=== PATIENT | female | born 1980 | race Hispanic/Latino ===

== ENCOUNTER 2020-08-20 09:57 | Emergency (ER) | payer OTHER, SELFPAY ==
[2020-08-20 11:23] LABS: Urine Blood Negative (Negative); Urine Glucose Negative (Negative); Urine Protein Negative (Negative); Urine Specific Gravity 1.025 (1.005-1.030)
[2020-08-20 11:46] LABS: Absolute Lymphocytes (CBC) 2.6 K/uL (0.7-4.9); Basophils % 0.5 % (0-1.3); Hematocrit 41.3 % (36.0-45.0); Lymphocytes % 31.5 % (15.3-44.8); MPV 8.6 fL (7.6-11.3); RBC Red Blood Cell Count 4.56 M/uL (3.86-4.86)
[2020-08-20 12:03] LABS: BUN Blood Urea Nitrogen 13 mg/dL (7-18); Bicarbonate 24 mmol/L (21-32); Creatine Phosphokinase 54 U/L (26-192); Glucose Level 89 mg/dL (74-106); NT PRO-BNP 69 pg/mL (<125); Potassium 3.9 mmol/L (3.5-5.1); Sodium Level 139 mmol/L (136-145)
[2020-08-20 12:05] LABS: Urine RBC NONE SEEN /HPF (NONE SEEN)
[2020-08-20 12:05] LABS: Urine Specific Gravity/Preg 1.025 (1.005-1.030)
[2020-08-20 12:06] LABS: Urine Bacteria NONE SEEN /HPF (<20)
--- NOTE | 2020-08-20 12:54 | RAD REPORT ---
EXAM DESCRIPTION: CT - Abdomen Pelvis W Contrast - 08/20/2020 11:38 am CLINICAL HISTORY: nausea/vomiting/low back pain COMPARISON: CT ABD PELVIS W CONTRAST dated 10/24/2014 TECHNIQUE: Biphasic, helical CT imaging of the abdomen and pelvis was performed following 100 ml non -ionic IV contrast. No oral contrast administered. All CT scans are performed using dose optimization technique as appropriate and may include automated exposure control or mA/KV adjustment according to patient size. FINDINGS: No suspicious findings in the lung bases. The liver, spleen, and pancreas show no suspicious findings. Cholecystectomy clips are present. No bi liary tree dilatation. Symmetric renal function is seen with no hydronephrosis or suspicious renal mass. No pyelonephritis o r acute parenchymal process. No bladder abnormalities. No adrenal abnormalities. Uterus and ovaries s how no suspicious findings. Tubal occlusive device is in place. No dilated bowel loops or bowel wall thickening. Appendix is normal. No free air, free fluid or infla mmatory stranding. No mass or bulky lymphadenopathy. Abdominal plasty surgical changes are present. No hematoma, mass or suspicious abdominal wall finding. No suspicious bony findings. IMPRESSION: Contrast enhanced CT abdomen and pelvis showing no acute or emergent finding. Nonacute findings detailed in the body of the report.
--- NOTE | 2020-08-20 14:42 | EDPHYS ---
Physician Documentation [facility] Name: Deirdre Salazar Age: 40 yrs Sex: Female : 1980 Arrival Date: 08/20/2020 Time: 09:59 Bed 13 Private MD: ED Physician Hernan Zuniga HPI: 08/20 12:15 This 40 yrs old Female presents to ER via Ambulatory with complaints of Chest rn Pain, Facial Swelling, Leg Swelling, Nausea. 12:17 Reports noticed generalized swelling since yesterday, vomiting, generalized weakness, rn and then chest pain after vomiting. Has never happened before. No fever. No sob. No trauma. No known kidney or heart problems. . Onset: The symptoms/episode began/occurred yesterday. Severity of symptoms: At their worst the symptoms were mild in the emergency department the symptoms are unchanged. The patient has not experienced similar symptoms in the past. The patient has not recently seen a physician. 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 - Social history:: Smoking status: Patient denies any tobacco usage or history of. - Family history:: not pertinent. - Hospitalizations: : No recent hospitalization is reported. ROS: 12:17 Constitutional: Negative for fever, chills, and weight loss, Eyes: Negative for injury, rn pain, redness, and discharge, Neck: Negative for injury, pain, and swelling, Cardiovascular: Negative for palpitations, and edema, Respiratory: Negative for shortness of breath, cough, wheezing, and pleuritic chest pain, Abdomen/GI: Negative for abdominal pain, diarrhea, and constipation, Back: Negative for injury and pain, : Negative for injury, bleeding, discharge, and swelling, MS/Extremity: Negative for injury and deformity, Skin: Negative for injury, rash, and discoloration, Neuro: Negative for headache, numbness, tingling, and seizure. Exam: 12:17 Constitutional: This is a well developed, well nourished patient who is awake, alert, rn and in no acute distress. Head/Face: Normocephalic, atraumatic. Eyes: Pupils equal round and reactive to light, extra-ocular motions intact. ENT: No stridor, MMM Cardiovascular: Regular rate and rhythm. No pulse deficits. Respiratory: No increased work of breathing, no retractions or nasal flaring. Abdomen/GI: soft, non-tender Skin: Warm, dry, no cyanosis, no rash MS/ Extremity: Pulses equal, no cyanosis. Neurovascular intact. Full, normal range of motion. Equal circumference. 1+ pitting edema bilateral lower ext Neuro: Awake and alert, GCS 15, oriented to person, place, time, and situation. Cranial nerves II-XII grossly intact. Motor strength 5/5 in all extremities. Sensory grossly intact. Cerebellar exam normal. Normal gait. Vital Signs: 10:12 BP 124 / 71; Pulse 80; Resp 18 S; Temp 97.8(TE); Pulse Ox 99% on R/A; Weight 86.18 kg aa5 (R); Height 5 ft. 0 in. (152.40 cm) (R); 12:00 BP 153 / 74; Pulse 80; Resp 20; Pulse Ox 99% on R/A; kg 13:00 BP 149 / 78; Pulse 80; Resp 20; Pulse Ox 100% on R/A; kg 14:02 BP 115 / 62; Pulse 70; Resp 20; Pulse Ox 98% on R/A; kg 15:00 BP 120 / 72; Pulse 74; Resp 20; Pulse Ox 100% on R/A; kg 10:12 Body Mass Index 37.11 (86.18 kg, 152.40 cm) aa5 MDM: 10:16 Patient medically screened. rn 14:40 Differential Diagnosis kidney failure, CHF, viral syndrome, thyroid problem. Data rn reviewed: vital signs, nurses notes, lab test result(s), radiologic studies, CT scan, and as a result, I will discharge patient. Counseling: I had a detailed discussion with the patient and/or guardian regarding: the historical points, exam findings, and any diagnostic results supporting the discharge/admit diagnosis, lab results, radiology results, the need for outpatient follow up, to return to the emergency department if symptoms worsen or persist or if there are any questions or concerns that arise at home. Response to treatment: the patient's symptoms have mildly improved after treatment, and as a result, I will discharge patient. Special discussion: I discussed with the patient/guardian in detail that at this point there is no indication for admission to the hospital. It is understood, however, that if the symptoms persist or worsen the patient needs to return immediately for re-evaluation. ED course: NO acute findings in labs or imaging, stable vitals, recommend f/u with pcp for further eval. . 08/20 10:23 Order name: CBC with Diff rn 08/20 10:24 Order name: Basic Metabolic Panel rn 08/20 10:24 Order name: Urine Microscopic Only rn 08/20 10:24 Order name: CK; Complete Time: 12:07 rn 08/20 10:24 Order name: TSH; Complete Time: 12:07 rn 08/20 10:24 Order name: T4 Free; Complete Time: 12:07 rn 08/20 10:24 Order name: BNP; Complete Time: 12:07 rn 08/20 10:24 Order name: CBC with Automated Diff; Complete Time: 12:07 EDFL 08/20 10:24 Order name: Basic Metabolic Panel; Complete Time: 12:07 EDMS 08/20 10:24 Order name: Urine Microscopic Only; Complete Time: 12:07 EDMS 08/20 11:23 Order name: Urine Dipstick-Ancillary; Complete Time: 12:07 EDMS 08/20 11:27 Order name: Urine --Ancillary (enter results); Complete Time: 12:07 08/20 14:07 Order name: SARS-COV-2 RT PCR; Complete Time: 14:34 EDMS 08/20 10:23 Order name: IV Start; Complete Time: 11:23 rn 08/20 10:24 Order name: Urine Test (obtain specimen); Complete Time: 11:23 rn 08/20 10:24 Order name: Urine Dipstick-Ancillary (obtain specimen); Complete Time: 11:23 rn 08/20 10:24 Order name: CT Abd/Pelvis - IV Contrast Only; Complete Time: 12:56 rn 08/20 14:10 Order name: CREATININE WHOLE BLOOD; Complete Time: 14:34 EDMS Administered Medications: No medications were administered Disposition: 08/20/20 14:42 Discharged to Home. Impression: Edema, unspecified. - Condition is Stable. - Discharge Instructions: Edema. - Medication Reconciliation Form, Thank You Letter, Antibiotic Education, Prescription Opioid Use form. - Follow up: Private Physician; When: As needed; Reason: Recheck today's complaints, Re-evaluation by your physician. - Problem is new. - Symptoms have improved. Signatures: Dispatcher [employer] [facility] Hernan Zuniga MD MD rn Calderon, Audri, RN RN aa5 Reema Bryant kg Corrections: (The following items were deleted from the chart) 13:18 10:24 CORONAVIRUS+MR.LAB.BRZ ordered. [facility] 15:31 14:42 08/20/2020 14:42 Discharged to Home. Impression: Edema, unspecified. Condition is kg Stable. Forms are Medication Reconciliation Form, Thank You Letter, Antibiotic Education, Prescription Opioid Use. Follow up: Private Physician; When: As needed; Reason: Recheck today's complaints, Re-evaluation by your physician. Problem is new. Symptoms have improved. rn
--- NOTE | 2020-08-20 14:42 | ER ---
Nurse's Notes [facility] Name: Deirdre Salazar Age: 40 yrs Sex: Female : 1980 Arrival Date: 08/20/2020 Time: 09:59 Bed 13 Private MD: Diagnosis: Edema, unspecified Presentation: 08/20 10:12 Chief complaint: Patient states: "I am swollen all over since yesterday and I threw up aa5 about 3 times today and probably got chest pain from me throwing up". Coronavirus screen: vomiting. Ebola Screen: Patient negative for fever greater than or equal to 101.5 degrees Fahrenheit, and additional compatible Ebola Virus Disease symptoms. Initial Sepsis Screen: Does the patient meet any 2 criteria? No. Patient's initial sepsis screen is negative. Does the patient have a suspected source of infection? No. Patient's initial sepsis screen is negative. Risk Assessment: Do you want to hurt yourself or someone else? Patient reports no desire to harm self or others. Onset of symptoms was August 2020. 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 - Social history:: Smoking status: Patient denies any tobacco usage or history of. - Family history:: not pertinent. - Hospitalizations: : No recent hospitalization is reported. Screenin:08 Abuse screen: Denies threats or abuse. Nutritional screening: No deficits noted. kg Tuberculosis screening: No symptoms or risk factors identified. Fall Risk None identified. No fall in past 12 months (0 pts). No secondary diagnosis (0 pts). IV access (20 points). Ambulatory Aid- None/Bed Rest/Nurse Assist (0 pts). Gait- Normal/Bed Rest/Wheelchair (0 pts) Mental Status- Oriented to own ability (0 pts). Total Mayes Fall Scale indicates No Risk (0-24 pts). Assessment: 11:03 General: Appears in no apparent distress. Behavior is calm, cooperative, appropriate kg for age, quiet. Pain: Complains of pain in chest Pain does not radiate. Pain currently is 5 out of 10 on a pain scale. at worst was 8 out of 10 on a pain scale. level that patient reports is acceptable is 5 out of 10 on a pain scale. Quality of pain is described as aching, Pain began gradually, 4 hours ago. Neuro: No deficits noted. Level of Consciousness is awake, alert, obeys commands, Oriented to person, place, time, situation, Appropriate for age. Cardiovascular: Reports chest pain, Heart tones S1 S2 Capillary refill < 3 seconds. Respiratory: No deficits noted. Airway is patent Breath sounds are clear bilaterally. GI: No deficits noted. : No deficits noted. EENT: No deficits noted. Derm: No deficits noted. Vital Signs: 10:12 BP 124 / 71; Pulse 80; Resp 18 S; Temp 97.8(TE); Pulse Ox 99% on R/A; Weight 86.18 kg aa5 (R); Height 5 ft. 0 in. (152.40 cm) (R); 12:00 BP 153 / 74; Pulse 80; Resp 20; Pulse Ox 99% on R/A; kg 13:00 BP 149 / 78; Pulse 80; Resp 20; Pulse Ox 100% on R/A; kg 14:02 BP 115 / 62; Pulse 70; Resp 20; Pulse Ox 98% on R/A; kg 15:00 BP 120 / 72; Pulse 74; Resp 20; Pulse Ox 100% on R/A; kg 10:12 Body Mass Index 37.11 (86.18 kg, 152.40 cm) aa5 ED Course: 09:59 Patient arrived in ED. am2 10:11 Arm band placed on. aa5 10:13 Triage completed. aa5 10:14 Reema Bryant is Primary Nurse. kg 10:16 Hernan Zuniga MD is Attending Physician. rn 11:08 Inserted saline lock: 20 gauge in left antecubital area, using aseptic technique. kg Patient maintains SpO2 saturation greater than 95% on room air. 11:09 Patient has correct armband on for positive identification. Placed in gown. Bed in low kg position. Call light in reach. Side rails up X 1. secured entrance monitor on. Pulse ox on. NIBP on. 11:23 Urine Microscopic Only Sent. kg 11:23 Basic Metabolic Panel Sent. kg 11:23 CBC with Diff Sent. kg 11:38 CT Abd/Pelvis - IV Contrast Only In Process Unspecified. EDMS 15:30 No provider procedures requiring assistance completed. IV discontinued, intact, kg bleeding controlled, No redness/swelling at site. Pressure dressing applied. Administered Medications: No medications were administered Outcome: 14:42 Discharge ordered by . rn 15:30 Discharged to home ambulatory. kg 15:30 Condition: good 15:30 Discharge instructions given to patient, Instructed on discharge instructions, follow up and referral plans. Demonstrated understanding of instructions, follow-up care. 15:31 Patient left the ED. kg Signatures: Dispatcher [employer] EDMS Hernan Zuniga MD MD rn Calderon, Audri RN RN Urvashi Alexandra Kristen kg
[2020-08-20 15:50] VITALS: TEMP 97.8
[2020-08-20 16:19] VITALS: BP 120/72; O2SAT 100
== END 2020-08-20 15:31 | disposition home or self-care (01) ==
LOC: ER 09:57
DX: R60.9 Edema, unspecified (principal); R11.2 Nausea with vomiting, unspecified; Z20.822 Contact with and (suspected) exposure to COVID-19
CPT/HCPCS: 36415; 74177; 80048; 81003; 81015; 81025; 82550; 82565; 83880; 84439; 84443; 85025; 99285; Q9967; U0003

== ENCOUNTER 2020-12-05 19:23 | Emergency (ER) | payer OTHER, SELFPAY ==
[2020-12-05] MEDS ORDERED: ONDANSETRON 4 MG (ODT) TAB ONE (20:46)
[2020-12-05 23:03] LABS: Absolute Lymphocytes (CBC) 1.7 K/uL (0.7-4.9); Basophils % 0.3 % (0-1.3); Hematocrit 41.1 % (36.0-45.0); Lymphocytes % 11.8 % (15.3-44.8); MPV 8.1 fL (7.6-11.3); RBC Red Blood Cell Count 4.68 M/uL (3.86-4.86)
[2020-12-05] MEDS ORDERED: MECLIZINE HCL 12.5 MG TAB ONE (23:03)
[2020-12-05] MEDS ORDERED: ACETAMINOPHEN 500 MG TAB ONE (23:03)
[2020-12-05] MEDS ORDERED: ONDANSETRON 4 MG/2 ML VIAL ONE (23:03)
[2020-12-05] MEDS ORDERED: METOCLOPRAMIDE 10 MG/2mL INJ ONE (23:03)
[2020-12-05] MEDS ORDERED: FAMOTIDINE 20 MG/2 ML VIAL IV ONE (23:04)
[2020-12-05] MEDS ORDERED: NA CHLORIDE 0.9% 1,000 ML ONE (23:04)
[2020-12-05 23:29] LABS: ALT/SGPT 37 U/L (12-78); AST/SGOT 15 U/L (15-37); Albumin 3.8 g/dL (3.4-5.0); Alkaline Phosphatase 67 U/L (45-117); BUN Blood Urea Nitrogen 15 mg/dL (7-18); Bicarbonate 25 mmol/L (21-32); Bilirubin Direct 0.1 mg/dL (0-0.2); Bilirubin Total 0.5 mg/dL (0.2-1.0); Glucose Level 99 mg/dL (74-106); Lipase 49 U/L (73-393); Magnesium 1.7 mg/dL (1.8-2.4); Potassium 4.4 mmol/L (3.5-5.1); Protein, Total 8.2 g/dL (6.4-8.2); Sodium Level 135 mmol/L (136-145); Troponin (Emerg Dept Use Only) < 0.02 ng/mL (0.0-0.045)
[2020-12-06 00:20] LABS: Blood Morphology Comment NOT SEEN (NOT SEEN); Platelet Estimate ADEQ; White Blood Cell Scan OK (OK)
[2020-12-06] MEDS ORDERED: NA CHLORIDE 0.9% 1,000 ML ONE (00:27)
--- NOTE | 2020-12-06 03:08 | ER ---
Nurse's Notes [facility] Name: Deirdre Salazar Age: 40 yrs Sex: Female : 1980 Arrival Date: 12/05/2020 Time: 19:27 Bed 10 Private MD: Diagnosis: Dizziness and giddiness;Infectious gastroenteritis and colitis, unspecified;Nausea with vomiting, unspecified;Diarrhea, unspecified Presentation: 12/05 20:14 Chief complaint: Patient states: around lunch time she started feeling dizzy bb "everything just spins" yesterday she started having diarrhea then today she has been vomiting at least 8 times. Coronavirus screen: diarrhea, vomiting. Client presents with at least one sign or symptom that may indicate coronavirus-19. Standard/surgical mask placed on the client. Ebola Screen: No symptoms or risks identified at this time. Initial Sepsis Screen: Does the patient meet any 2 criteria? No. Patient's initial sepsis screen is negative. Does the patient have a suspected source of infection? No. Patient's initial sepsis screen is negative. Risk Assessment: Do you want to hurt yourself or someone else? Patient reports no desire to harm self or others. Onset of symptoms was December 04, 2020. 20:14 Method Of Arrival: Ambulatory bb 20:14 Acuity: EMILY 3 bb Triage Assessment: 20:16 General: Appears in no apparent distress. uncomfortable, Behavior is calm, cooperative. bb Pain: Complains of pain in headache. Neuro: Level of Consciousness is awake, alert, obeys commands, Oriented to person, place, time, situation. Cardiovascular: Capillary refill < 3 seconds Patient's skin is warm and dry. Respiratory: Respiratory effort is even, unlabored, Respiratory pattern is regular. GI: Reports diarrhea, vomiting. Derm: Skin is pink, warm \\T\\ dry. Musculoskeletal: Circulation, motion, and sensation intact. 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 - Social history:: Smoking status: Patient denies any tobacco usage or history of. Screenin:00 Fall Risk IV access (20 points). wg 22:58 Abuse screen: Denies threats or abuse. Nutritional screening: No deficits noted. wg Tuberculosis screening: No symptoms or risk factors identified. Assessment: 22:00 GI: Reports diarrhea. Vital Signs: 20:14 BP 123 / 66; Pulse 80; Resp 16 S; Temp 98(O); Pulse Ox 97% on R/A; Weight 92.99 kg (R); bb Height 5 ft. 0 in. (152.40 cm) (R); Pain 8/10; 22:00 BP 134 / 72; Pulse 88; Resp 20; Temp 97.5; Pulse Ox 98% ; Pain 4/10; wg 23:43 BP 92 / 48; Pulse 74; Resp 18; Pulse Ox 95% on R/A; dh4 12/06 03:32 BP 128 / 74; Pulse 78; Resp 18; Temp 98.1; Pulse Ox 100% on R/A; Pain 0/10; wg 12/05 20:14 Body Mass Index 40.04 (92.99 kg, 152.40 cm) ED Course: 12/05 19:27 Patient arrived in ED. bp1 20:16 Triage completed. bb 20:16 Arm band placed on Patient placed in waiting room, Patient notified of wait time. Labs bb ordered per protocol. 21:48 Trae Bentley PA is PHCP. cp 21:48 Elvis Palacios MD is Attending Physician. cp 22:00 Patient has correct armband on for positive identification. 22:00 Inserted saline lock: 20 gauge in left forearm, using aseptic technique. 22:00 Inserted saline lock:. wg 22:19 CT Head Brain wo Cont In Process Unspecified. EDMS 22:57 No provider procedures requiring assistance completed. 12/06 01:09 Tricia Ramos, RN is Primary Nurse. 9 02:13 CT Abd/Pelvis - IV Contrast Only In Process Unspecified. EDMS 03:31 IV discontinued, intact, bleeding controlled, No redness/swelling at site. Pressure wg dressing applied. Administered Medications: 12/05 20:24 Drug: Ondansetron 4 mg Route: PO; 12/06 03:34 Follow up: Response: No adverse reaction 12/05 22:45 Drug: Meclizine 25 mg Route: PO; 12/06 00:01 Follow up: Response: No adverse reaction 03:34 Follow up: Response: No adverse reaction 12/05 22:45 Drug: NS 0.9% 1000 ml Route: IV; Rate: 1 bolus; Site: left forearm; bb 12/06 00:00 Follow up: IV Status: Completed infusion; IV Intake: 1000ml 12/05 22:45 Drug: Tylenol 1000 mg Route: PO; 12/06 00:01 Follow up: Response: No adverse reaction bb 03:34 Follow up: Response: No adverse reaction 12/05 22:45 Drug: Reglan (metoCLOPramide) 10 mg Route: IVP; Site: left forearm; 12/06 00:01 Follow up: Response: No adverse reaction 03:33 Follow up: Response: No adverse reaction 12/05 22:47 Drug: Pepcid (famotidine) 20 mg Route: IVP; Site: left forearm; 12/06 00:00 Follow up: Response: No adverse reaction 12/05 22:50 Drug: Zofran (Ondansetron) 4 mg Route: IVP; Site: left forearm; 12/06 00:00 Follow up: Response: No adverse reaction bb 03:34 Follow up: Response: No adverse reaction 00:09 Drug: NS 0.9% 1000 ml Route: IV; Rate: 1 bolus; Site: left forearm; bb 03:30 Follow up: IV Status: Completed infusion wg 03:09 Drug: Cipro (ciprofloxacin) 500 mg Route: PO; wg 03:33 Follow up: Response: No adverse reaction wg 03:09 Drug: metroNIDAZOLE 500 mg Route: PO; wg 03:33 Follow up: Response: No adverse reaction 03:10 Drug: Magnesium 800 mg Route: PO; wg 03:33 Follow up: Response: No adverse reaction Intake: 00:00 IV: 1000ml; Total: 1000ml. bb Outcome: 03:07 Discharge ordered by . ema 03:35 Patient left the ED. wg Signatures: Dispatcher [employer] EDJessica Chao RN RN Trae Boyd PA PA cp Huhn, Donald 4 Gloria Marques Skylar, RN RN sh9 Dhaval Figueroa wg
--- NOTE | 2020-12-06 03:08 | EDPHYS ---
Physician Documentation [facility] Name: Deirdre Salazar Age: 40 yrs Sex: Female : 1980 Arrival Date: 12/05/2020 Time: 19:27 Bed 10 Private MD: ED Physician Elvis Palacios HPI: 12/05 22:05 This 40 yrs old Female presents to ER via Ambulatory with complaints of cp Dizziness, Vomiting. 22:05 The patient presents with dizziness, lightheadedness, feeling off balance. Onset: The cp symptoms/episode began/occurred this morning. 22:05 Context: occurred while the patient was standing. Associated signs and symptoms: cp Pertinent positives: N/V/D that started last night. Patient's baseline: Neuro: alert and fully oriented, Motor: no deficits, Ambulation: walks without assistance, Speech: normal. Patient denies fever. c/o headache. Reports dizziness while driving to ED this evening. 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 - Social history:: Smoking status: Patient denies any tobacco usage or history of. ROS: 22:10 Constitutional: Positive for poor PO intake, Negative for chills, fever. cp 22:10 Eyes: Negative for injury, pain, redness, and discharge. cp 22:10 ENT: Negative for ear pain, sore throat, difficulty swallowing, difficulty handling secretions. 22:10 Cardiovascular: Negative for chest pain, edema, palpitations. 22:10 Respiratory: Negative for cough, shortness of breath, wheezing. 22:10 Abdomen/GI: Positive for nausea, vomiting, and diarrhea, anorexia, Negative for constipation, hematemesis, black/tarry stool, rectal bleeding. 22:10 Neuro: Positive for headache, Negative for altered mental status, weakness. Exam: 22:15 Constitutional: The patient appears in no acute distress, alert, awake, cp non-diaphoretic, non-toxic, well developed, well nourished, obese. 22:15 Head/Face: Normocephalic, atraumatic. cp 22:15 Eyes: Periorbital structures: appear normal, Pupils: equal, round, and reactive to light and accomodation, Extraocular movements: intact throughout, Conjunctiva: normal, no exudate, no injection, Sclera: no appreciated abnormality, Lids and lashes: appear normal, bilaterally. 22:15 ENT: External ear(s): are unremarkable, Ear canal(s): are normal, clear, TM's: dullness, bilaterally, Nose: is normal, Mouth: Lips: moist, Oral mucosa: moist, Posterior pharynx: Airway: no evidence of obstruction, patent. 22:15 Neck: ROM/movement: is normal, is supple, without pain, no range of motions limitations, no meningismus. 22:15 Chest/axilla: Inspection: normal, Palpation: is normal, no crepitus, no tenderness. 22:15 Cardiovascular: Rate: normal, Rhythm: regular. 22:15 Respiratory: the patient does not display signs of respiratory distress, Respirations: normal, no use of accessory muscles, no retractions, labored breathing, is not present, Breath sounds: are clear throughout, no decreased breath sounds, no stridor, no wheezing. 22:15 Abdomen/GI: Inspection: abdomen appears normal, Palpation: soft, in all quadrants, mild abdominal tenderness, in the left upper quadrant and left lower quadrant, rebound tenderness, is not appreciated, voluntary guarding, is not appreciated, involuntary guarding, is not appreciated. 22:15 Back: pain, that is mild, of the left low back, ROM is normal, CVA tenderness, is absent. 22:15 Neuro: Orientation: to person, place \T\ time. Mentation: is normal, Cerebellar function: is grossly normal, Motor: moves all fours, strength is normal, Sensation: is normal. 22:18 ECG was reviewed by the Attending Physician. cp Vital Signs: 20:14 BP 123 / 66; Pulse 80; Resp 16 S; Temp 98(O); Pulse Ox 97% on R/A; Weight 92.99 kg (R); bb Height 5 ft. 0 in. (152.40 cm) (R); Pain 8/10; 22:00 BP 134 / 72; Pulse 88; Resp 20; Temp 97.5; Pulse Ox 98% ; Pain 4/10; wg 23:43 BP 92 / 48; Pulse 74; Resp 18; Pulse Ox 95% on R/A; dh4 12/06 03:32 BP 128 / 74; Pulse 78; Resp 18; Temp 98.1; Pulse Ox 100% on R/A; Pain 0/10; wg 12/05 20:14 Body Mass Index 40.04 (92.99 kg, 152.40 cm) bb MDM: 12/05 21:49 Patient medically screened. cp 22:30 Differential diagnosis: cardiac arrhythmia, CVA, GI bleed, hypovolemia, idiopathic cp dizziness, TIA, vertigo, dehydration. 12/06 03:05 Data reviewed: vital signs, nurses notes, lab test result(s), EKG, radiologic studies, cp CT scan. 03:05 Test interpretation: by ED physician or midlevel provider: ECG. Counseling: I had a cp detailed discussion with the patient and/or guardian regarding: the historical points, exam findings, and any diagnostic results supporting the discharge/admit diagnosis, lab results, radiology results, to return to the emergency department if symptoms worsen or persist or if there are any questions or concerns that arise at home. Response to treatment: the patient's symptoms have markedly improved after treatment. 12/05 21:34 Order name: SARS-COV-2 RT PCR; Complete Time: 23:47 EDMS 12/05 22:00 Order name: Basic Metabolic Panel; Complete Time: 23:47 12/05 23:48 Interpretation: Normal except: NA 135; GFR 85. 12/05 22:00 Order name: CBC with Diff; Complete Time: 00:34 12/05 23:48 Interpretation: Normal except: WBC 14.00; DANIKA% 83.5; LYM% 11.8; NEUT A 11.7. 12/05 22:00 Order name: LFT's; Complete Time: 23:47 12/06 00:34 Interpretation: Normal except: GLOB 4.4; A/G 0.9. 12/05 22:00 Order name: Magnesium; Complete Time: 23:47 12/06 00:34 Interpretation: Abnormal: MG 1.7. 12/05 22:00 Order name: Troponin (emerg Dept Use Only); Complete Time: 23:47 12/05 22:00 Order name: Lipase; Complete Time: 23:47 12/06 00:35 Interpretation: Abnormal: LIP 49. 12/05 22:05 Order name: CT Head Brain wo Cont 12/05 23:10 Order name: CBC Smear Scan; Complete Time: 00:34 EDMS 12/06 00:34 Interpretation: Reviewed. 12/05 23:49 Order name: CT Abd/Pelvis - IV Contrast Only 12/05 22:00 Order name: EKG; Complete Time: 22:02 12/05 22:00 Order name: EKG - Nurse/Tech; Complete Time: 22:57 12/05 22:00 Order name: IV Saline Lock; Complete Time: 22:57 12/05 22:00 Order name: Labs collected and sent; Complete Time: 22:57 12/05 22:00 Order name: O2 Per Protocol; Complete Time: :57 12/05 22:00 Order name: O2 Sat Monitoring; Complete Time: :57 12/06 02:52 Order name: PO challenge; Complete Time: 03:09 cp EC/25 22:18 Rate is 70 beats/min. Rhythm is regular. RI interval is normal. QRS interval is normal. cp QT interval is normal. T waves are Inverted in lead aVR. Interpreted by me. Reviewed by me. Administered Medications: 20:24 Drug: Ondansetron 4 mg Route: PO; 12/06 03:34 Follow up: Response: No adverse reaction 12/05 22:45 Drug: Meclizine 25 mg Route: PO; 12/06 00:01 Follow up: Response: No adverse reaction 03:34 Follow up: Response: No adverse reaction 12/05 22:45 Drug: NS 0.9% 1000 ml Route: IV; Rate: 1 bolus; Site: left forearm; 12/06 00:00 Follow up: IV Status: Completed infusion; IV Intake: 1000ml 12/05 22:45 Drug: Tylenol 1000 mg Route: PO; 12/06 00:01 Follow up: Response: No adverse reaction 03:34 Follow up: Response: No adverse reaction 12/05 22:45 Drug: Reglan (metoCLOPramide) 10 mg Route: IVP; Site: left forearm; 12/06 00:01 Follow up: Response: No adverse reaction 03:33 Follow up: Response: No adverse reaction 12/05 22:47 Drug: Pepcid (famotidine) 20 mg Route: IVP; Site: left forearm; bb 12/06 00:00 Follow up: Response: No adverse reaction bb 12/05 22:50 Drug: Zofran (Ondansetron) 4 mg Route: IVP; Site: left forearm; bb 12/06 00:00 Follow up: Response: No adverse reaction bb 03:34 Follow up: Response: No adverse reaction 00:09 Drug: NS 0.9% 1000 ml Route: IV; Rate: 1 bolus; Site: left forearm; bb 03:30 Follow up: IV Status: Completed infusion wg 03:09 Drug: Cipro (ciprofloxacin) 500 mg Route: PO; wg 03:33 Follow up: Response: No adverse reaction wg 03:09 Drug: metroNIDAZOLE 500 mg Route: PO; wg 03:33 Follow up: Response: No adverse reaction wg 03:10 Drug: Magnesium 800 mg Route: PO; wg 03:33 Follow up: Response: No adverse reaction wg Disposition: 03:48 Co-signature as Attending Physician, Elvis Palacios MD. izabella Disposition Summary: 12/06/20 03:07 Discharge Ordered Location: Home cp Problem: new cp Symptoms: have improved cp Condition: Stable cp Diagnosis - Dizziness and giddiness cp - Infectious gastroenteritis and colitis, unspecified cp - Nausea with vomiting, unspecified cp - Diarrhea, unspecified cp Followup: cp - With: Private Physician - When: 2 - 3 days - Reason: Worsening of condition Discharge Instructions: - Discharge Summary Sheet cp - Diarrhea, Adult cp - Clear Liquid Diet, Adult cp - Dizziness cp - Nausea and Vomiting, Adult cp Forms: - Medication Reconciliation Form cp - Thank You Letter cp - Antibiotic Education cp - Prescription Opioid Use cp Prescriptions: - Meclizine 25 mg Oral Tablet - take 1 tablet by ORAL route every 8 hours As needed; 30 tablet; Refills: 0, cp Product Selection Permitted - Zofran 4 mg Oral Tablet - take 1 tablet by ORAL route every 12 hours As needed; 20 tablet; Refills: 0, cp Product Selection Permitted - Cipro 500 mg Oral Tablet - take 1 tablet by ORAL route every 12 hours for 10 days; 20 tablet; Refills: 0, cp Product Selection Permitted - Metronidazole 500 mg Oral Tablet - take 1 tablet by ORAL route every 8 hours; 30 tablet; Refills: 0, Product cp Selection Permitted Signatures: Dispatcher [employer] Elvis Cantrell MD MD pkl Ballard Jessica, RN RN bb Trae Bentley PA PA cp Gamba, Williams wg Corrections: (The following items were deleted from the chart) 12/05 20:31 20:19 CORONAVIRUS+ ordered. EDMS EDMS
[2020-12-06] MEDS ORDERED: metroNIDAZOLE 500 MG TABLET ONE (03:29)
[2020-12-06] MEDS ORDERED: CIPROFLOXACIN HCL 500 MG TAB ONE (03:29)
[2020-12-06] MEDS ORDERED: MAGNESIUM OXIDE 400 MG TAB ONE (03:35)
[2020-12-06 04:05] VITALS: BP 128/74; TEMP 98.1; O2SAT 100
--- NOTE | 2020-12-06 11:41 | RAD REPORT ---
EXAM DESCRIPTION: CT Abdomen and Pelvis With Intravenous Contrast CLINICAL HISTORY: The patient is 40 years old and is Female; diarrhea;Nausea / vomiting TECHNIQUE: Axial computed tomography images of the abdomen and pelvis with intravenous contrast. S agittal and coronal reformatted images were created and reviewed. This CT exam was performed using one or more of the following dose reduction techniques: automated exposure control, adjustment of t he mA and/or kV according to patient size, and/or use of iterative reconstruction technique. COMPARISON: CT abdomen and pelvis August 20, 2020. FINDINGS: Lung bases: Unremarkable. No mass. No consolidation. ABDOMEN: Liver: Unremarkable. No mass. Gallbladder and bile ducts: Gallbladder is surgically absent. No ductal dilation. Pancreas: Unremarkable. No mass. No ductal dilation. Spleen: Unremarkable. No splenomegaly. Adrenals: Unremarkable. No mass. Kidneys and ureters: Unremarkable. No solid mass. No hydronephrosis. Stomach and bowel: Suggestion of bowel wall thickening involving some segments of small bowel in the left upper quadrant. Scattered colonic diverticula. No obstruction. PELVIS: Appendix: The appendix is normal. Bladder: Unremarkable. No mass. Reproductive: Tubal occlusive devices are in place. ABDOMEN and PELVIS: Intraperitoneal space: Unremarkable. No free air. No significant fluid collection. Bones/joints: No acute fracture. No dislocation. Soft tissues: Bilateral breast implants. Vasculature: Unremarkable. No abdominal aortic aneurysm. Lymph nodes: Unremarkable. No enlarged lymph nodes. IMPRESSION: 1. Suggestion of bowel wall thickening involving some segments of small bowel in the l eft upper quadrant. Findings are nonspecific but can be seen with enteritis. 2. Gallbladder is surgically absent. 3. Scattered colonic diverticula. 4. The appendix is normal. Electronically signed by: Tommy Mccrary MD 12/06/2020 2:44 AM CDT Due to temporary technical issues with the PACS/Fluency reporting system, reports are being signed by the in house radiologist without review as a courtesy to ensure prompt reporting. The interpreting r adiologist is fully responsible for the content of the report.
--- NOTE | 2020-12-06 12:14 | RAD REPORT ---
EXAM DESCRIPTION: CT HEAD WITHOUT IV CONTRAST CLINICAL HISTORY: DIZZINESS TECHNIQUE: Contiguous axial CT images obtained through the brain without IV contrast. Coronal and sa gittal reformatted images were provided. This exam was performed according to our departmental dose-optimization program, which includes autom ated exposure control, adjustment of the mA and/or kV according to patient size and/or use of iterati ve reconstruction technique. COMPARISON: None available for comparison FINDINGS: Brain: No significant white matter changes. No focal mass effect. Lobo-white matter differ entiation is within normal limits. No hemorrhage. Ventricles: No ventriculomegaly or midline shift. Extra-axial spaces: No extra-axial collection or hemorrhage. Paranasal sinuses and mastoid air cells: Well-aerated Vessels: Unremarkable Bones: Unremarkable Soft tissues: Unremarkable IMPRESSION: No acute intracranial or extra-axial abnormality. Electronically signed by: Nathalie Andrews MD 12/05/2020 10:36 PM CDT Due to temporary technical issues with the PACS/Fluency reporting system, reports are being signed by the in house radiologist without review as a courtesy to ensure prompt reporting. The interpreting r adiologist is fully responsible for the content of the report.
== END 2020-12-06 03:35 | disposition home or self-care (01) ==
LOC: ER 19:23
DX: A09 Infectious gastroenteritis and colitis, unspecified (principal); Z20.822 Contact with and (suspected) exposure to COVID-19
CPT/HCPCS: 96361; 93005; 85025; 80048; 36415; 83735; 80076; 84484; 83690; 70450; 74177; 96375; 96374; 99284; U0003; Q9967; J2765; J7030 ×2; J2405

== ENCOUNTER 2021-01-26 09:33 | Emergency (ER) | payer OTHER, SELFPAY ==
[2021-01-26] MEDS ORDERED: HYDROCODONE/APAP 10/325 TAB ONE (11:49)
[2021-01-26] MEDS ORDERED: LIDOCAINE VISCOUS 2% SOLN 15 ML UDC ONE (11:50)
--- NOTE | 2021-01-26 12:48 | EDPHYS ---
Physician Documentation [facility] Name: Deirdre Salazar Age: 41 yrs Sex: Female : 1980 Arrival Date: 01/26/2021 Time: 09:36 Bed 26 Private MD: Trae Vann HPI: 01/26 10:06 This 41 yrs old Female presents to ER via Ambulatory with complaints of jmm Vaginal Pain - swelling. 10:06 The patient presents with pelvic pain. Onset: The symptoms/episode began/occurred jmm acutely, last night. Modifying factors: The symptoms are alleviated by nothing, the symptoms are aggravated by nothing. Associated signs and symptoms: Pertinent negatives:. This is a 41-year-old female with no chronic medical conditions the presents emerged part with complaints of vaginal pain which occurred after intercourse last night. Patient states that her partner inserted his penis into her labia did not angle. Patient states pain has decreased she is able to walk now but continues to have ongoing pain and swelling to the area. Denies bleeding.. 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 - Social history:: Smoking status: Patient denies any tobacco usage or history of. ROS: 10:06 Constitutional: Negative for fever, chills, and weight loss, Cardiovascular: Negative jmm for chest pain, palpitations, and edema, Respiratory: Negative for shortness of breath, cough, wheezing, and pleuritic chest pain. 10:06 : Positive for pelvic pain. 10:06 All other systems are negative. Exam: 10:06 Constitutional: This is a well developed, well nourished patient who is awake, alert, jmm and in no acute distress. Head/Face: atraumatic. Eyes: EOMI, no conjunctival erythema appreciated ENT: Moist Mucus Membranes Neck: Trachea midline, Supple Chest/axilla: Normal chest wall appearance and motion. Cardiovascular: Regular rate and rhythm. No edema appreciated Respiratory: Normal respirations, no respiratory distress appreciated Abdomen/GI: Non distended, soft Back: Normal ROM Skin: General appearance color normal 10:06 MS/ Extremity: Moves all extremities, no obvious deformities appreciated, no edema noted to the lower extremities Neuro: Awake and alert, normal gait Psych: Behavior is normal, Mood is normal, Patient is cooperative and pleasant 10:06 : Right labial swelling appreciated with some ecchymosis, no lacerations noted, no active bleeding noted. Vital Signs: 10:00 BP 127 / 84; Pulse 75; Resp 18; Temp 97.9(O); Pulse Ox 99% on R/A; Pain 11/20; aj1 12:00 BP 118 / 72; Pulse 75; Resp 18; Pulse Ox 99% on R/A; aj1 MDM: 10:06 Patient medically screened. [facility] 12:47 Data reviewed: vital signs, nurses notes. Counseling: I had a detailed discussion with wilber the patient and/or guardian regarding: the historical points, exam findings, and any diagnostic results supporting the discharge/admit diagnosis, the need for outpatient follow up, to return to the emergency department if symptoms worsen or persist or if there are any questions or concerns that arise at home. ED course: Pain has decreased while in the ED. Patient advised follow-up with [facility] for further evaluation otherwise given strict return precautions. Patient understood agrees plan of care.. Administered Medications: 11:30 Drug: Viscous Lidocaine Liquid (4 %) 10 ml Route: Mucous Membrane; aj1 11:30 Drug: [place] (HYDROcodone-acetaminophen) 10 mg-325 mg 1 tabs Route: PO; aj1 Disposition Summary: 01/26/21 12:48 Discharge Ordered Location: Home [facility] Condition: Stable [facility] Diagnosis - Labial hematoma [facility] Followup: [facility] - With: Private Physician - When: 2 - 3 days - Reason: Recheck today's complaints, Continuance of care, Re-evaluation by your physician Discharge Instructions: - Discharge Summary Sheet [facility] - How to Take a Sitz Bath [facility] Forms: - Medication Reconciliation Form [facility] - Thank You Letter [facility] - Antibiotic Education [facility] - Prescription Opioid Use [facility] Prescriptions: - Ultracet 37.5-325 mg Oral Tablet - take 1 tablet by ORAL route every 6 hours - for up to 5 days; do not exceed 8 jmm tablets per day.; 12 tablet; Refills: 0, Product Selection Permitted Addendum: 01/27/2021 16:12 Co-signature as Attending Physician, Trae Feliciano MD I agree with the assessment and c burch plan of care. Signatures: Calista Gabriel RN RN aj1 Trae Feliciano MD MD cha Mickail, Joel, PA PA jmm
--- NOTE | 2021-01-26 12:48 | ER ---
Nurse's Notes [facility] Name: Deirdre Salazar Age: 41 yrs Sex: Female : 1980 Arrival Date: 01/26/2021 Time: 09:36 Bed 26 Private MD: Diagnosis: Labial hematoma Presentation: 01/26 10:00 Chief complaint: Patient states: She was having sexual intercourse last night when she aj1 started to feel pain in her labia. It become very painful so they stopped, she noticed after that that her labia started to be very swollen. She tried icing it last night, but it was more painful and swollen this morning. Denies drainage from the area. 10:00 Coronavirus screen: Client denies travel out of the [place] in the last 14 days. Ebola aj1 Screen: Patient denies travel to an Ebola-affected area in the 21 days before illness onset. Initial Sepsis Screen: Does the patient meet any 2 criteria? No. Patient's initial sepsis screen is negative. Does the patient have a suspected source of infection? No. Patient's initial sepsis screen is negative. Risk Assessment: Do you want to hurt yourself or someone else? Patient reports no desire to harm self or others. Onset of symptoms was January 25, 2021. 10:00 Method Of Arrival: Ambulatory aj1 10:00 Acuity: EMILY 4 aj1 Triage Assessment: 10:43 General: Appears in no apparent distress. uncomfortable, Behavior is calm, cooperative, aj1 appropriate for age. Pain: Complains of pain in pelvis Pain currently is 8 out of 10 on a pain scale. 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 - Social history:: Smoking status: Patient denies any tobacco usage or history of. Screenin:15 Abuse screen: Denies threats or abuse. Denies injuries from another. Nutritional aj1 screening: No deficits noted. Tuberculosis screening: No symptoms or risk factors identified. 13:15 Fall Risk None identified. aj1 Assessment: 10:15 General: Appears in no apparent distress. uncomfortable, Behavior is calm, cooperative, aj1 appropriate for age. 10:15 Pain: Complains of pain in right labia minora Pain does not radiate. Pain currently is aj1 10 out of 10 on a pain scale. Quality of pain is described as aching, sharp, shooting, pulsating, Pain began 1 day ago. Neuro: Level of Consciousness is awake, alert, obeys commands, Oriented to person, place, time, situation. Cardiovascular: Patient's skin is warm and dry. Respiratory: Airway is patent Respiratory effort is even, unlabored, Respiratory pattern is regular, symmetrical. GI: No signs and/or symptoms were reported involving the gastrointestinal system. : Swelling noted on labia Denies burning with urination. EENT: No signs and/or symptoms were reported regarding the EENT system. Derm: Skin is pink, warm \T\ dry. Musculoskeletal: Circulation, motion, and sensation intact. 11:15 Reassessment: Patient appears in no apparent distress at this time. No changes from aj1 previously documented assessment. Patient and/or family updated on plan of care and expected duration. Pain level reassessed. Patient is alert, oriented x 3, equal unlabored respirations, skin warm/dry/pink. 12:30 Reassessment: Patient is alert, oriented x 3, equal unlabored respirations, skin aa5 warm/dry/pink. Vital Signs: 10:00 BP 127 / 84; Pulse 75; Resp 18; Temp 97.9(O); Pulse Ox 99% on R/A; Pain 8/10; aj1 12:00 BP 118 / 72; Pulse 75; Resp 18; Pulse Ox 99% on R/A; aj1 ED Course: 09:36 Patient arrived in ED. as 09:56 Juvencio Barba PA is PHCP. [facility] 09:56 Trae Feliciano MD is Attending Physician. [facility] 10:15 Patient has correct armband on for positive identification. Bed in low position. Call aj1 light in reach. Side rails up X 1. 10:41 Calista Gabriel, RN is Primary Nurse. aj1 10:43 Triage completed. aj1 10:43 Arm band placed on Patient placed in an exam room. aj1 12:30 Assist provider with pelvic exam: Set up pelvic tray. Performed by Juvencio [email or web address] Patient tolerated well. 13:15 Patient did not have IV access during this emergency room visit. aj1 Administered Medications: 11:30 Drug: Viscous Lidocaine Liquid (4 %) 10 ml Route: Mucous Membrane; aj1 11:30 Drug: [place] (HYDROcodone-acetaminophen) 10 mg-325 mg 1 tabs Route: PO; aj1 Outcome: 12:48 Discharge ordered by MD. merino 13:15 Discharged to home ambulatory. aj1 13:15 Condition: good 13:15 Discharge instructions given to patient, Instructed on discharge instructions, follow up and referral plans. medication usage, Demonstrated understanding of instructions, follow-up care, medications, Prescriptions given X 1. 13:16 Patient left the ED. aj1 Signatures: Calista Gabriel RN RN aj1 Juvencio Barba PA PA jmm Martinez, Amelia as Calderon, Audri, RN RN aa5 Corrections: (The following items were deleted from the chart) 12:56 10:15 General: Appears in no apparent distress. uncomfortable, Behavior is calm, aj1 cooperative, appropriate for age, aj1
[2021-01-26 13:36] VITALS: TEMP 97.9; O2SAT 99
[2021-01-26 13:42] VITALS: BP 118/72
== END 2021-01-26 13:16 | disposition home or self-care (01) ==
LOC: ER 09:33
DX: S30.23XA Contusion of vagina and vulva, initial encounter (principal)
CPT/HCPCS: 99283

== ENCOUNTER 2023-03-11 09:19 | Emergency (ER) | payer SELFPAY ==
[2023-03-11 09:56] LABS: Absolute Lymphocytes (CBC) 2.8 K/uL (0.7-4.9); Hematocrit 44.2 % (36.0-45.0); MCV 90.5 fL (80-100); Platelets 326 thou/uL (152-406); RBC Red Blood Cell Count 4.88 M/uL (3.86-4.86); Specific Gravity 1.022 (1.005-1.030)
[2023-03-11 10:06] LABS: Specific Gravity 1.022 (1.005-1.030); Urine Bacteria None Seen /HPF (<20); Urine Bilirubin NEGATIVE (Negative); Urine Blood 1+ (Negative); Urine Clarity Clear (Clear); Urine Color Light-Yellow (Yellow); Urine Crystals Unidentified Few /HPF (None Seen); Urine Glucose NEGATIVE (Negative); Urine Mucus Slight /HPF (None Seen); Urine Protein NEGATIVE (Negative); Urine RBC <5 /HPF (None Seen); Urine Urobilinogen Normal (Normal)
[2023-03-11 10:09] LABS: Albumin 3.8 g/dL (3.4-5.0); Bilirubin Total 0.5 mg/dL (0.2-1.0); Potassium 3.8 mEq/L (3.5-5.1); Protein, Total 8.2 g/dL (6.4-8.2)
[2023-03-11] MEDS ORDERED: KETOROLAC 30 MG/ML INJ ONE (10:22)
[2023-03-11] MEDS ORDERED: NA CHLORIDE 0.9% 1,000 ML ONE (10:22)
[2023-03-11] MEDS ORDERED: ONDANSETRON 4 MG/2 ML VIAL ONE (10:22)
--- NOTE | 2023-03-11 10:34 | RAD REPORT ---
EXAM DESCRIPTION: CT - Abdomen Pelvis W Contrast - 03/11/2023 10:11 am CLINICAL HISTORY: Abdominal pain COMPARISON: 2020 TECHNIQUE: Computed axial tomography of the abdomen pelvis was obtained. 100 cc Isovue-300 was admin istered intravenously. Oral contrast was not requested which limits evaluation of bowel and appendix All CT scans are performed using dose optimization technique as appropriate and may include automated exposure control or mA/KV adjustment according to patient size. FINDINGS: The liver, spleen, pancreas, adrenal and kidneys appear unremarkable. There is no evidence of diverticulitis. Normal appendix No adnexal mass. Tubal ligation coils. Cholecystectomy IMPRESSION: No acute abnormality is displayed.
--- NOTE | 2023-03-11 11:53 | RAD REPORT ---
EXAM DESCRIPTION: US - Transvaginal Study Probe - 03/11/2023 11:11 am CLINICAL HISTORY: Pelvic pain COMPARISON: CT abdomen February 08, 2023 FINDINGS: The uterus measures 9 x 4 x 5 cm. A fibroid is not seen. The endometrial stripe measures The ovaries are normal in size and echotexture. Blood flow within each ovary The right and left adnexa unremarkable Tubal ligation coils in place No significant free fluid is seen. IMPRESSION: No acute abnormality displayed
--- NOTE | 2023-03-11 11:56 | ER ---
Nurse's Notes [facility] Name: Deirdre Salazar Age: 43 yrs Sex: Female : 1980 Arrival Date: 03/11/2023 Time: 09:19 Bed 16 Private MD: Diagnosis: Lower abdominal pain, unspecified Presentation: 03/11 09:22 Acuity: EMILY 3 ll1 09:25 Chief complaint: Patient states: Low back and lower abdominal pain for 3 days. ll1 Coronavirus screen: Client denies travel out of the [place] in the last 14 days. At this time, the client does not indicate any symptoms associated with coronavirus-19. Ebola Screen: Patient denies travel to an Ebola-affected area in the 21 days before illness onset. 09:25 Method Of Arrival: Ambulatory ll1 09:26 Initial Sepsis Screen: Does the patient meet any 2 criteria? No. Patient's initial ll1 sepsis screen is negative. Does the patient have a suspected source of infection? No. Patient's initial sepsis screen is negative. Risk Assessment: Do you want to hurt yourself or someone else? Patient reports no desire to harm self or others. Onset of symptoms was March 09, 2023. Triage Assessment: 09: General: Appears uncomfortable, Behavior is calm, cooperative, appropriate for age. ll1 Pain: Complains of pain in low back/pelvis Quality of pain is described as aching, crampy. GI: Reports lower abdominal pain, bloating, cramping. : Reports vaginal bleeding that is. Historical: - Allergies: 09:22 NKA; ll1 - PMHx: 09: None; ll1 - PSHx: 09: tummy tuck; Cholecystectomy; ll1 - Immunization history:: Adult Immunizations up to date. - Social history:: Smoking status: Patient reports the use of cigarette tobacco products, denies chronic smoking, but will smoke occasionally. Screenin:30 [facility] ED Fall Risk Assessment (Adult) History of falling in the last 3 months, ko1 including since admission No falls in past 3 months (0 pts) Confusion or Disorientation No (0 pts) Intoxicated or Sedated No (0 pts) Impaired Gait No (0 pts) Mobility Assist Device Used No (0 pt) Altered Elimination No (0 pt) Score/Fall Risk Level 0 - 2 = Low Risk Oriented to surroundings, Maintained a safe environment, Educated pt \T\ family on fall prevention, incl call for assistance when getting out of bed, Assessed \T\ reinforced patient's understanding of fall precautions, Provided non-skid footwear, Hourly rounding (assess needs \T\ fall precautionary measures) done, Used ambulatory aids as needed (educated on \T\ assisted with). Abuse screen: Denies threats or abuse. Denies injuries from another. Nutritional screening: No deficits noted. Tuberculosis screening: No symptoms or risk factors identified. Assessment: 09:30 Neuro: No deficits noted. Cardiovascular: No deficits noted. Respiratory: No deficits ko1 noted. GI: Bowel sounds present X 4 quads. Abd is soft Reports lower abdominal pain, bloating, nausea. : No deficits noted. EENT: No deficits noted. Derm: No deficits noted. Musculoskeletal: No deficits noted. Vital Signs: 09:26 BP 129 / 96; Pulse 96; Resp 18; Temp 98.3; Pulse Ox 99% ; Weight 97.52 kg; Height 5 ft. ll1 0 in. ; Pain 9/10; 12:27 BP 132 / 84; Pulse 85; Resp 14; Pulse Ox 100% ; ko1 09:26 Body Mass Index 41.99 (97.52 kg, 152.4 cm) ll1 09:26 Pain Scale: Adult ll1 ED Course: 09:21 Patient arrived in ED. mg5 09:22 Naima Tang F[facility]-C [facility]. kb 09:22 Nelson Jones DO is Attending Physician. kb 09:22 Triage completed. ll1 09:22 Arm band placed on. ll1 09:30 Patient has correct armband on for positive identification. Bed in low position. Call ko1 light in reach. Side rails up X2. Provided Education on: na. Pulse ox on. NIBP on. Door closed. Noise minimized. Lights dimmed. Warm blanket given. 09:30 No provider procedures requiring assistance completed. ko1 09:45 CBC with Diff Sent. bc6 09:46 CMP Sent. bc6 09:46 Lipase Sent. bc6 09:46 Test, Urine Sent. bc6 09:46 Urinalysis w/ reflexes Sent. bc6 09:46 Inserted saline lock: 20 gauge in right antecubital area, using aseptic technique. bc6 Blood collected. 10:04 Sendy Carpenter, RN is Primary Nurse. ko1 10:11 CT Abd/Pelvis - IV Contrast Only In Process Unspecified. EDMS 11:13 US Transvaginal Study (Probe) In Process Unspecified. EDMS 12:27 IV discontinued, intact, bleeding controlled, No redness/swelling at site. Pressure ko1 dressing applied. Administered Medications: 10:15 Drug: NS 0.9% IV 1000 ml IV at 1 bolus Per protocol; 1000 mL bolus Route: IV; Rate: 1 ko1 bolus; Site: right antecubital; 10:29 Drug: TORadol - Ketorolac IVP 15 mg IVP once Route: IVP; Site: right antecubital; ko1 10:29 Drug: Ondansetron IVP 4 mg IVP once; over 2 minutes Route: IVP; Site: right antecubital;ko1 Medication: 09:30 VIS not applicable for this client. ko1 Outcome: 11:56 Discharge ordered by . ruben 12:27 Discharged to home ambulatory, ko1 12:27 Condition: improved 12:27 Discharge instructions given to patient, Instructed on discharge instructions, follow up and referral plans. medication usage, Demonstrated understanding of instructions, follow-up care, medications, Prescriptions given X 1, 12:28 Patient left the ED. ko1 Signatures: Dispatcher [employer] EDMS Naima Tang, SHELTER DIRECTOR-C SHELTER DIRECTOR-Laury Son RN RN ll1 Sendy Carpenter, RN RN ko1 Xenia Vicente 6 Danyelle Page mg5
--- NOTE | 2023-03-11 11:56 | EDPHYS ---
Physician Documentation [facility] Name: Deirdre Salazar Age: 43 yrs Sex: Female : 1980 Arrival Date: 03/11/2023 Time: 09:19 Bed 16 Private MD: ED Physician Nelson Jones HPI: 03/11 09:32 This 43 yrs old Female presents to ER via Ambulatory with complaints of kb Abdominal Pain. 09:32 Patient is a 43-year-old female with no medical history presents for abdominal pain kb that started 3 days ago. Reports some diarrhea but that is normal for her after cholecystectomy.. Historical: - Allergies: 09:22 NKA; ll1 - PMHx: 09:22 None; ll1 - PSHx: 09:27 tummy tuck; Cholecystectomy; ll1 - Immunization history:: Adult Immunizations up to date. - Social history:: Smoking status: Patient reports the use of cigarette tobacco products, denies chronic smoking, but will smoke occasionally. ROS: 09:32 Constitutional: Negative for fever, chills, and weight loss, kb 09:32 Abdomen/GI: Positive for abdominal pain, diarrhea, 09:32 All other systems are negative, Exam: 09:32 Constitutional: This is a well developed, well nourished patient who is awake, alert, kb and in no acute distress. Head/Face: Normocephalic, atraumatic. ENT: Moist Mucous membranes Cardiovascular: Regular rate Respiratory: Respirations even and unlabored. No increased work of breathing. Talking in full sentences Skin: Warm, dry with normal turgor. Normal color. MS/ Extremity: Pulses equal, no cyanosis. Neurovascular intact. Full, normal range of motion. Neuro: Awake and alert, GCS 15, oriented to person, place, time, and situation. Moves all extremities. Normal gait. 09:32 Abdomen/GI: Inspection: abdomen appears normal, Bowel sounds: normal, in all quadrants, Palpation: soft, in all quadrants, mild abdominal tenderness, in the right lower quadrant and left lower quadrant, Vital Signs: 09:26 BP 129 / 96; Pulse 96; Resp 18; Temp 98.3; Pulse Ox 99% ; Weight 97.52 kg; Height 5 ft. ll1 0 in. ; Pain 9/10; 12:27 BP 132 / 84; Pulse 85; Resp 14; Pulse Ox 100% ; ko1 09:26 Body Mass Index 41.99 (97.52 kg, 152.4 cm) ll1 09:26 Pain Scale: Adult ll1 MDM: 09:22 Patient medically screened. kb 09:34 Differential diagnosis: appendicitis, diverticulitis, Dysmenorrhea, non-specific abd kb pain. Data reviewed: vital signs, nurses notes. 11:54 Counseling: I had a detailed discussion with the patient and/or guardian regarding the kb historical points, exam findings, and any diagnostic results supporting the discharge/admit diagnosis, lab results, radiology results, the need for outpatient follow up, a family practitioner, an OB/Gyne specialist, to return to the emergency department if symptoms worsen or persist or if there are any questions or concerns that arise at home. 03/11 09:27 Order name: CBC with Diff; Complete Time: 10:28 kb 03/11 09:27 Order name: CMP; Complete Time: 10:11 kb 03/11 09:27 Order name: Lipase; Complete Time: 10:11 kb 03/11 09:27 Order name: Test, Urine; Complete Time: 10:00 kb 03/11 09:27 Order name: Urinalysis w/ reflexes; Complete Time: 10:11 kb 03/11 09:27 Order name: CT Abd/Pelvis - IV Contrast Only; Complete Time: 10:36 kb 03/11 10:45 Order name: US Transvaginal Study (Probe); Complete Time: 11:54 kb 03/11 09:28 Order name: IV Saline Lock; Complete Time: 09:45 kb 03/11 09:28 Order name: Labs collected and sent; Complete Time: 09:45 kb Administered Medications: 10:15 Drug: NS 0.9% IV 1000 ml IV at 1 bolus Per protocol; 1000 mL bolus Route: IV; Rate: 1 ko1 bolus; Site: right antecubital; 10:29 Drug: TORadol - Ketorolac IVP 15 mg IVP once Route: IVP; Site: right antecubital; ko1 10:29 Drug: Ondansetron IVP 4 mg IVP once; over 2 minutes Route: IVP; Site: right antecubital;ko1 Disposition: 17:32 I was immediately available on-site in the Emergency Department for consultation in the ms3 care of the patient. Disposition Summary: 03/11/23 11:56 Discharge Ordered Notes: Location: Home kb Condition: Stable kb Diagnosis - Lower abdominal pain, unspecified kb Followup: kb - With: Emergency Department - When: As needed - Reason: Worsening of condition Followup: kb - With: Private Physician - When: 2 - 3 days - Reason: Recheck today's complaints, Continuance of care, Re-evaluation by your physician Discharge Instructions: - Discharge Summary Sheet kb - Pelvic Pain, Female, [id number] kb - Abdominal Pain, Adult, [id number] kb Forms: - Medication Reconciliation Form kb - Thank You Letter kb - Antibiotic Education kb - Prescription Opioid Use kb - Patient Portal Instructions kb - Leadership Thank You Letter kb Prescriptions: - Diclofenac Sodium 75 mg Oral tablet, delayed release (enteric coated) - take 1 tablet ORAL route 2 times per day As needed; 30 tablet; Refills: 0, kb Product Selection Permitted Signatures: Dispatcher [employer] EDWV Naima Tang, JANUSZ-C JANUSZ-Laury Son, RN RN ll1 Nelson Jones DO DO ms3 Sendy Carpenter, RN RN ko1
[2023-03-11 12:50] VITALS: BP 129/96; TEMP 98.3; O2SAT 99
== END 2023-03-11 12:28 | disposition home or self-care (01) ==
LOC: ER 09:19
DX: R10.31 Right lower quadrant pain (principal); R10.32 Left lower quadrant pain
CPT/HCPCS: 36415; 74177; 76830; 80053; 81001; 81025; 83690; 85025; 96374; 96375; 99284; J2405; J7030; Q9967